=== PATIENT | female | born 1970 | race Caucasian/White ===

== ENCOUNTER 2017-03-27 16:19 | Emergency (ER) | payer BC ==
[~2017-03-27] VITALS: Ht 167.6 cm; Wt 63.5 kg
[2017-03-27] MEDS ORDERED: AMLOD-VALSA-HC1 EACH PO (17:47)
[2017-03-27 17:49] VITALS: BP 138/80
== END 2017-03-27 17:35 | disposition home or self-care (01) ==
LOC: ER 16:19
DX: S61.215A Laceration without foreign body of left ring finger without damage to nail, initial encounter (principal); I10 Essential (primary) hypertension; Z88.8 Allergy status to other drugs, medicaments and biological substances; W26.0XXA Contact with knife, initial encounter; Y93.89 Activity, other specified; Y92.89 Other specified places as the place of occurrence of the external cause; Y99.8 Other external cause status